=== PATIENT | female | born 1945 | race African-American/Black ===

== ENCOUNTER 2018-04-27 20:03 | Emergency (ER) | payer MEDICARE, OTHER ==
[~2018-04-27] VITALS: Ht 170.2 cm; Wt 70.3 kg
[2018-04-27] MEDS ORDERED: Bacitracin Oint UD TOPIC ONE (20:30)
[2018-04-27 20:53] VITALS: BP 183/84
[2018-04-27] MEDS ORDERED: Sodium Chloride 500ML 550 ML IV SCH (21:00)
[2018-04-27] MEDS ORDERED: Morphine Sulfate 4mg/ml Inj (IV/IM USE ONLY) IVP ONE (21:00)
[2018-04-27] MEDS ORDERED: traMADol 50mg tab ORAL ONE (21:15)
[2018-04-27] MEDS ORDERED: METFORMIN HCL1000 M1 ORAL (21:44)
[2018-04-27] MEDS ORDERED: LISINOPRIL20 MG ORAL (21:44)
[2018-04-27] MEDS ORDERED: Lisinopril 10mg tab ORAL ONE ×2 (22:00)
--- NOTE | 2018-04-27 22:56 | Emergency Room Report ---
History of Present Illness General Chief Complaint: Multiple Trauma/Fall Source: Patient Present Illness HPI Patient tripped over a crack in the walkway. She hit her left side of her head. There was no loss of consciousness. She's complaining about burning pain where she cut. She lost quite a bit of blood but this was controlled at the scene by her daughter applied pressure. She was not ambulatory at the scene and was placed on a gurney. She's complaining about some pain in her neck and also her hips. Also her forearms have some tenderness bilaterally. Pain face rated 8-10/10 - eyebrow and cheek, sharp and stinging, not radiate. No medication taken. 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 Type 2 diabetes. States sugars well controlled. HTN Tetanus up to date. Allergies: Coded Allergies: No Known Allergies (Unverified , 06/02/14) Patient History Past Medical History: see triage record Social History: Denies: smoking, alcohol use Social History Narrative with daughter - her Dad was a elementary classroom teacher on [facility] Last Menstrual Period: 1993 Now: No Reviewed Nursing Documentation: PMH: Agreed; PSxH: Agreed Nursing Documentation-PMH Past Medical History: No History, Except For Hx Hypertension: Yes Hx Diabetes: Yes - type 2 Hx Cancer: Yes - breast Physical Exam Vital Signs Date Time Temp Pulse Resp B/P (MAP) Pulse Ox O2 Delivery O2 Flow Rate FiO2 04/27/18 20:08 98.1 82 16 183/88 97 Room Air Head: normocephalic, other - abrasion and lac L side of face Eyes: bilateral eye PERRL, bilateral eye EOMI ENT: normal voice Neck: full range of motion, supple, no bony tend, tender lateral - bilateral Cardiovascular #1: other - lymphedema R arm Gastrointestinal: normal bowel sounds, non tender, soft Musculoskeletal: pelvis stable - but slight tenderness with compression, other - Ambulatory with some hip pain bilaterally, hands without tenderness, shoulders not tender, tender - forearms bilat without deformity or crepetance Neurologic: oriented x3, lead retail sales associate III-XII nml as tested, motor strength/tone normal , DTRs symmetric, sensory intact, cerebellar normal, normal gait, speech normal Psychiatric: mood/affect normal Skin: warm/dry, abrasions, laceration Procedures Laceration/Wound Repair Laceration/Wound Repair : Consent: Verbal Wound Location: face Wound's Depth, Shape: into muscle, linear, contused tissue Wound Length (cm): 3 Wound Explored: clean Irrigated w/ Saline (ccs): 20 Betadine Prep?: Yes Anesthesia: Lidocaine w/ Epi Volume Anesthetic (ccs): 2 Wound Debrided: none Wound Repaired With: sutures Suture Size/Type: 6:0, proline Layer Closure?: Yes Deep Layer Suture Size/Type: 6:0, other - Vicryl Sterile Dressing Applied?: Yes Patient Tolerated: Well Complications: None Progress Betadine. Irrigation. Muscular closure. Irrigation. Subcuticular closure. Irrigation. Dermal closure with cosmetic result - just above L eyebrow. Medical Decision Making Diagnostic Impression: Primary Impression: Multiple injuries due to trauma Additional Impression: Facial laceration Qualified Codes: S01.81XA - Laceration without foreign body of other part of head, initial encounter ER Course Patient with non-syncopal fall with facial trauma. DDX; lacerations, contusions , bleed, concussion, extremity contusions, hip/pelvis contusions/fx amongst others. CT head and pelvis indicated. Analgesia indicated. Laceration repair also indicated. CT head - no bleed or fx. CT pelvis - no fx. Laceration repaired - 3 layer - cosmetic closure. BP elevated. Had not taken meds this AM. Lisinopril given (she states on 40 mg ). Still with pain. Tramadol ordered. Ambulatory and improved pain. Discussed outpatient observation and treatment with daughter and patient. Stable for outpatient observation and treatment. EKG Diagnostic Results Rate: normal Rhythm: NSR ST Segments: no acute changes - NSSTTW changes Rhythm Strip Diag. Results EP Interpretation: yes Rhythm: NSR, no PVC's, no ectopy CT/MRI/US Diagnostic Results CT/MRI/US Diagnostic Results #1: Imaging Test Ordered: head Impression no bleed, fx. STS L orbit. Involutional changes. CT/MRI/US Diagnostic Results #2: Imaging Test Ordered: pelvis Impression no fx - DJD Last Vital Signs Date Time Temp Pulse Resp B/P (MAP) Pulse Ox O2 Delivery O2 Flow Rate FiO2 04/27/18 23:59 98.1 96 16 142/67 97 Room Air Status: improved Disposition: HOME, SELF-CARE Condition: Improved Scripts Tramadol Hcl* (ULTRAM*) 50 Mg Tablet 50 MG ORAL Q6H PRN for For Pain, #12 TAB 0 Refills Prov: Kwame Paiz MD 04/27/18 Bacitracin (Bacitracin) 28.4 Gm Oint...g. 1 APPLIC TOPIC BID, #20 GM Prov: Kwame Paiz MD 04/27/18 Referrals: NON PHYSICIAN (PCP) Kwame Paiz MD Apr 27, 2018 22:56
[2018-04-27] MEDS ORDERED: TRAMADOL HCL50 MG ORAL (22:59)
[2018-04-27] MEDS ORDERED: BACITRACIN15 GM TOPIC (22:59)
[2018-04-27 23:59] VITALS: BP 142/67
--- NOTE | 2018-04-28 12:22 | Cardiology Report ---
APPROVED REPORT EKG Measurement Heart [id number] Normal sinus rhythm T wave abnormality, consider anterior ischemia Abnormal ECG
== END 2018-04-27 23:58 | disposition home or self-care (01) ==
LOC: EDBD 20:03 → EDUNIT# 20:03 → EMR 20:34
DX: S01.81XA Laceration without foreign body of other part of head, initial encounter (principal); S00.81XA Abrasion of other part of head, initial encounter; W19.XXXA Unspecified fall, initial encounter; Y92.009 Unspecified place in unspecified non-institutional (private) residence as the place of occurrence of the external cause; M54.2 Cervicalgia; M25.551 Pain in right hip; M25.552 Pain in left hip; M79.631 Pain in right forearm; M79.632 Pain in left forearm; M79.642 Pain in left hand; M79.641 Pain in right hand; I89.0 Lymphedema, not elsewhere classified; I10 Essential (primary) hypertension; E11.9 Type 2 diabetes mellitus without complications; Z85.3 Personal history of malignant neoplasm of breast
CPT/HCPCS: 70450; 74176; 93005; 96374; 96375; 99284

== ENCOUNTER 2018-05-05 22:05 | Emergency (ER) | payer MEDICARE, OTHER ==
[~2018-05-05] VITALS: Ht 170.2 cm; Wt 71.7 kg
[~2018-05-05 22:05] MED LIST: BACITRACIN15 GM TOPIC; LISINOPRIL20 MG ORAL; METFORMIN HCL1000 M1 ORAL; TRAMADOL HCL50 MG ORAL
[2018-05-05 22:15] VITALS: BP 140/88
[2018-05-05] MEDS ORDERED: GLIPIZIDE5 MG ORAL (22:21)
[2018-05-05] MEDS ORDERED: GABAPENTIN100 MG ORAL (22:21)
[2018-05-05] MEDS ORDERED: IBUPROFEN600 MG ORAL (22:21)
--- NOTE | 2018-05-05 22:47 | Emergency Room Report ---
History of Present Illness General Chief Complaint: Wound Recheck/Suture Removal Source: Patient Present Illness HPI Is a 72-year-old female who tripped and fell last week sustaining a laceration to her left eyebrow area. She presents with chief complaint for suture removal. No complications since then. No fever or chills. No drainage. Minimal pain. Allergies: Coded Allergies: No Known Allergies (Unverified , 06/02/14) Patient History Past Medical History: see triage record, old chart reviewed Past Surgical History: other Pertinent Family History: none Social History: Denies: smoking Last Menstrual Period: 2 decades ago Now: No Immunizations: other Reviewed Nursing Documentation: PMH: Agreed; PSxH: Agreed Nursing Documentation-PMH Hx Hypertension: Yes Hx Diabetes: Yes - type 2 Hx Cancer: Yes - breast Review of Systems Eye: Denies: eye pain, blurred vision ENT: Denies: ear pain, nose congestion, throat swelling Respiratory: Denies: cough, shortness of breath Cardiovascular: Denies: chest pain, palpitations Gastrointestinal: Denies: abdominal pain, diarrhea, nausea, vomiting Musculoskeletal: Denies: back pain, joint pain Skin: Denies: rash Neurological: Denies: headache, numbness Endocrine: Denies: increased thirst, increased urine Hematologic/Lymphatic: Denies: easy bruising All Other Systems: negative except mentioned in HPI Physical Exam Vital Signs Date Time Temp Pulse Resp B/P (MAP) Pulse Ox O2 Delivery O2 Flow Rate FiO2 05/05/18 22:14 99.0 71 16 151/79 98 Room Air vitals unremarkable Sp02 EP Interpretation: reviewed, normal General Appearance: well appearing, no apparent distress, alert Head: normocephalic, atraumatic, other - Left eyebrow suture site is clean without any evidence of infection. Eyes: bilateral eye PERRL, bilateral eye EOMI ENT: hearing grossly normal, normal pharynx Neck: full range of motion, supple, no meningismus Respiratory: chest non-tender, lungs clear, normal breath sounds Cardiovascular #1: regular rate, rhythm, no murmur Gastrointestinal: normal bowel sounds, non tender, no mass, no organomegaly, no bruit, non-distended Musculoskeletal: back normal, gait/station normal, normal range of motion Psychiatric: mood/affect normal Skin: warm/dry Procedures Additional Procedure Procedure Narrative procedure: Suture removal Indication: Laceration repair Description: I removed the 6 interrupted sutures with a small scissor. Patient tolerated procedure w/o any problem. No complication. Medical Decision Making Diagnostic Impression: Primary Impression: Encounter for removal of sutures ER Course no evidence of infection Last Vital Signs Date Time Temp Pulse Resp B/P (MAP) Pulse Ox O2 Delivery O2 Flow Rate FiO2 05/05/18 22:14 99.0 71 16 151/79 98 Room Air Status: improved Disposition: HOME, SELF-CARE Condition: Stable Additional Instructions: Follow-up with your doctor in 7 days as needed. Return if worse. Julio Dahl MD May 05, 2018 22:47
[2018-05-05 22:55] VITALS: BP 144/89
== END 2018-05-05 23:00 | disposition home or self-care (01) ==
LOC: EMR 23:00
DX: S01.112A Laceration without foreign body of left eyelid and periocular area, initial encounter (principal); X58.XXXA Exposure to other specified factors, initial encounter; Z48.02 Encounter for removal of sutures; E11.9 Type 2 diabetes mellitus without complications; Z85.3 Personal history of malignant neoplasm of breast; I10 Essential (primary) hypertension
CPT/HCPCS: 99282